=== PATIENT | female | born 1970 | race Caucasian/White ===

== ENCOUNTER 2020-01-05 11:20 | Inpatient (IN) | payer MEDICAID, SELFPAY ==
[2020-01-05 11:32] VITALS: BP 127/93; PULSE 89; RESP 18; TEMP 36.6; O2SAT 93; BMI 27.4
--- NOTE | 2020-01-05 11:45 | W.ED.PSYCH ---
HPI - Psych General: Chief Complaint: Psychiatric Symptoms Stated Complaint: direct admit npu Time Seen by Provider: 01/05/20 11:38 Source: patient and police Mode of arrival: other Limitations: no limitations History of Present Illness: HPI Narrative: 49-year-old female who is here from [place] with a 96-hour hold for suicide attempt days ago. Patient currently denies being suicidal and has no complaints at this time. Patient is direct admit to the MPU but is coming to the ER for code screening. She denies any fever or cough. Associated symptoms: Reports depression Review of Systems Const: Denies: fever(s), chills, body aches or change in appetite Eyes: Denies: blurry vision or eye discomfort ENMT: Denies: throat pain or dental pain Card: Denies: chest pain Resp: Denies: dyspnea GI: Denies: abdominal pain, nausea, vomiting or diarrhea : Denies: dysuria Musc: Denies: neck pain or back pain Skin/Breast: Denies: rash Neuro: Denies: headache(s) Psych: Reports: depression Baldo/Lymph: Denies: easy bruising All/Imm: Denies: urticaria Physical Exam Const: COMMON NORMALS: no acute distress, patient oriented x3 and healthy appearing HENMT: COMMON NORMALS: normocephalic and atraumatic HEAD & SCALP: normocephalic and atraumatic Eye: COMMON NORMALS: Equal, round and reactive pupils present and EOMs intact bilaterally PUPIL: Yes Equal, round and reactive pupils present Neck/C-Spine: COMMON NORMALS: full ROM and supple Chest: COMMONS NORMALS: normal inspection of the chest and normal palpation of entire chest wall Resp: COMMON NORMALS: normal respiratory effort, No retractions, No use of accessory muscles and clear to auscultation bilaterally AUSCULTATION: clear to auscultation bilaterally Cardio: COMMON NORMALS: regular rate, regular rhythm and No murmurs present (Cardio) RATE: regular rate RHYTHM: regular rhythm GI: COMMON NORMALS: Normal to inspection, nondistended, normoactive bowel sounds present, Soft to palpation, non-tender and no masses PALPATION: Yes Soft to palpation Extremity: COMMON NORMALS: normal to inspection and full ROM Neuro: COMMON NORMALS: patient oriented x3, moves all extremities and no focal motor deficits Psych: COMMON NORMALS: mental status grossly normal, Normal thought process present and cooperative MOOD & AFFECT: Yes depressed mood THOUGHT PROCESS: Normal thought process present Skin: COMMON NORMALS: no rashes or lesions noted and no wounds GENERAL SKIN EXAM: no rashes or lesions noted MDM - Psych MDM Narrative: Medical decision making narrative: Patient presents here to 96-hour hold as a direct admit to the psychiatric unit. Patient has no complaints and is well-appearing here. She has no cough or fever. Will admit to the psychiatric unit. 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
--- NOTE | 2020-01-05 11:57 | PC.NURSE ---
pt is a direct admit to NPU. She is on a 96 hour hold. pt denies SI or HI at this time
[2020-01-05 12:19] VITALS: BP 127/93; PULSE 89; RESP 18; O2SAT 94
[2020-01-05 12:56] VITALS: BP 111/82; PULSE 101; RESP 20; TEMP 36.6; O2SAT 95
[2020-01-05 12:57] VITALS: BMI 27.4
[2020-01-05 14:00] VITALS: BP 111/82; PULSE 101; RESP 20; TEMP 36.6
[2020-01-05] MEDS: carvedilol 12.5 mg Tablet PO (17:47)
[2020-01-05] MEDS: duloxetine 30 mg Capsule PO (21:12)
[2020-01-05] MEDS: quetiapine 25 mg Tablet 50 MG PO (21:12)
[2020-01-05 22:00] VITALS: BP 123/88; PULSE 88; RESP 17; TEMP 37; O2SAT 93
[2020-01-06 06:00] VITALS: BP 126/79; PULSE 94; RESP 16; TEMP 36.7; O2SAT 94
[2020-01-06] MEDS: carvedilol 12.5 mg Tablet PO (08:33)
[2020-01-06] MEDS: meloxicam 7.5 mg tablet 15 MG PO (08:33)
[2020-01-06] MEDS: lisinopril 5 mg Tablet PO (08:33)
[2020-01-06] MEDS: duloxetine 30 mg Capsule PO (08:33)
--- NOTE | 2020-01-06 08:33 | PM.NHP ---
Providers/Chief Complaint Admitting Physician: Skip Zambrano MD Chief Complaint: direct admit npu HPI NPU History of Present Illness Chief complaint: I apparently attempted suicide on December 27. History of present illness:Christen Ram is a 49 year old female who was transferred from the [facility] on January 03 for direct admission following a suicide attempt on December 27. Patient does not recall the events around the suicide attempt. He said that her level of distress around her family had increased in the week before. She had broken up with her boyfriend of 10 months and that was causing her a great deal of distress. She has a lot of other stressors in her life which she manages poorly. She denies that she had been thinking about suicide in the days before. She feels as though it must have been an impulsive act. Her urine drug screen was positive only for the prescribed benzodiazepines.. Her blood alcohol level was negative. She believes she overdosed on a combination of Seroquel, alprazolam, and zolpidem. She does not recall taking the pills. The first thing she recalls is waking up in the intensive care unit at the hospital. On hospital day #3 the transferred to her to a regular medical bed and she remained there for several days. Today she reports that she is extremely remorseful over her alleged activities. She is looking forward to getting back to seeing her psychiatrist at the [facility]. She also acknowledges that meeting with a psychiatrist 4 times a year is not considered therapy and she needs to be seeing a therapist. Mental health history: Patient was first treated for mental health problems at age 31 following hospitalization for her first suicide attempt by overdose. This is her third hospitalization for overdose. She is actively in treatment with Dr. Pratt at the [facility]. Who is providing pharmacological intervention. She is not seeing a therapist at this time. Family psychiatric history is positive for mother being treated for depression. Social history: Patient grew up in [place]. She dropped out of school at age 18. She achieved her GED at age 22 and got an associates degree in applied science at age 32. She has been once. She was in 1999. She has 2 adult children. 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 Legal history: Patient denies any history of arrests or incarceration. Public record in [place] supports that assertion. Past medical history: Allergies: Morphine Patient is being treated for low back pain, fibromyalgia, hypertension, lumbar root nerve disorder, neck pain, urinary incontinence. Surgeries include a tubal ligation, labrum tear repair, and bladder suspension. Medications prior to hospitalization include duloxetine 60 mg daily, carvedilol 12.5 mg twice daily, Lexapro 20 mg daily, lisinopril 5 mg daily, quetiapine 50 mg at bedtime, zolpidem 10 mg at bedtime. She also takes meloxicam 15 mg and alprazolam 0.5 mg on a as needed basis. Meds NPU Home Medications Medication Instructions Recorded Confirmed Last Taken Type alprazolam 0.5 mg PO BID PRN 01/05/20 01/05/20 Unknown History carvedilol 12.5 mg PO BID 01/05/20 01/05/20 01/05/20 History duloxetine 30 mg PO BID 01/05/20 01/05/20 01/05/20 History escitalopram oxalate 20 mg PO DAILY 01/05/20 01/05/20 01/05/20 History ibuprofen 200 - 800 mg PO PRN 01/05/20 01/05/20 01/04/20 History lisinopril 5 mg PO DAILY 01/05/20 01/05/20 Unknown History meloxicam 15 mg PO DAILY 01/05/20 01/05/20 Unknown History quetiapine 50 mg PO BEDTIME 01/05/20 01/05/20 01/04/20 History zolpidem 10 mg PO BEDTIME 01/05/20 01/05/20 Unknown History Allergies Allergy/AdvReac Type Severity Reaction Status Date / Time morphine Allergy ADR-Abdominal Verified 01/05/20 12:42 Pain Mental Status Exam MSE Comments: Discharge Mental Status Exam: Appearance: hygiene is good; no gross neurological deficits., gait is unremarkable; AIMS=0 Speech: Speech is of normal rate and rhythm and easily understood. Thought processes: Thought processes are abstract. Judgment is adequate for safety. Associations: intact Psychotic processes: There is no indication of guarding or paranoia. There is no attention to the internal stimuli. Auditory and visual hallucinations are denied. Judgment: Insight is fair. Problem solving skills are adequate for safety. Orientation: The patient is oriented to person, place time and situation. Memory: no deficits noted in immediate, intermediate, or remote spheres. Attention: The patient is alert and interpersonally engaged. Language: Verbalizations are coherent. Fund of knowledge: Fund of knowledge is adequate. Affect/Mood: Affect is consistent with a euthymic mood. denied suicidal ideation Affective range is appropriate. Psychosis: perception unimpaired except through cognitive distortion; reality testing intact. Vitals/I&O/Wt Last Vital Signs Temp 98.1 F 01/06/20 06:00 Pulse 94 01/06/20 06:00 Resp 16 01/06/20 06:00 BP 126/79 01/06/20 06:00 Pulse Ox 94 01/06/20 06:00 Weight last 48 hrs Weight 77.111 kg Weight 77.111 kg A&P Assessment and plan (1) Adjustment disorder with mixed disturbance of emotions and conduct: Status: Acute Additional A&P Information Diagnoses: Adjustment disorder with disturbance of mood and conduct Assessment: Patient has a pattern of poor coping skills and would benefit from engagement in individual psychotherapy in addition to medication management. Her medications seem to be accomplishing what is expected of them. She does not present an imminent risk to self or others at this time and is intent on returning home and engaging in that psychotherapy. Treatment plan: Patient is discharged to home. No changes in medications. Involuntary Hold Information 96 Hour Hold: 96 Hour Involuntary Admission: Yes 96 Hour Hold Ending Date: 01/05/20 96 Hour Hold Ending Time: 12:57 Attestations NPU Medical Necessity Statement*: Patient is subsequently discharged to home. Coding Level of Care Code Acute Build And Release Manager for [place] [place] Diagnoses Adjustment disorder with mixed disturbance of emotions and conduct F43.25
--- NOTE | 2020-01-06 09:20 | PM.NDC ---
Diagnoses at Discharge Discharge Diagnosis (1) Adjustment disorder with mixed disturbance of emotions and conduct: Status: Resolved Reason for Visit Reason for Visit: dChief complaint: I apparently attempted suicide Hospital Course Discharge Summary Chief complaint: I apparently attempted suicide on December 27. History of present illness:Christen Ram is a 49 year old female who was transferred from the [facility] on January 03 for direct admission following a suicide attempt on December 27. Patient does not recall the events around the suicide attempt. He said that her level of distress around her family had increased in the week before. She had broken up with her boyfriend of 10 months and that was causing her a great deal of distress. She has a lot of other stressors in her life which she manages poorly. She denies that she had been thinking about suicide in the days before. She feels as though it must have been an impulsive act. Her urine drug screen was positive only for the prescribed benzodiazepines.. Her blood alcohol level was negative. She believes she overdosed on a combination of Seroquel, alprazolam, and zolpidem. She does not recall taking the pills. The first thing she recalls is waking up in the intensive care unit at the hospital. On hospital day #3 the transferred to her to a regular medical bed and she remained there for several days. Today she reports that she is extremely remorseful over her alleged activities. She is looking forward to getting back to seeing her psychiatrist at the [facility]. She also acknowledges that meeting with a psychiatrist 4 times a year is not considered therapy and she needs to be seeing a therapist. Mental health history: Patient was first treated for mental health problems at age 31 following hospitalization for her first suicide attempt by overdose. This is her third hospitalization for overdose. She is actively in treatment with Dr. Pratt at the [facility]. Who is providing pharmacological intervention. She is not seeing a therapist at this time. Family psychiatric history is positive for mother being treated for depression. Social history: Patient grew up in [place] [facility]. She dropped out of school at age 18. She achieved her GED at age 22 and got an associates degree in applied science at age 32. She has been once. She was in 1999. She has 2 adult children. 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 Legal history: Patient denies any history of arrests or incarceration. Public record in [place] supports that assertion. Past medical history: Allergies: Morphine Patient is being treated for low back pain, fibromyalgia, hypertension, lumbar root nerve disorder, neck pain, urinary incontinence. Surgeries include a tubal ligation, labrum tear repair, and bladder suspension. Medications prior to hospitalization include duloxetine 60 mg daily, carvedilol 12.5 mg twice daily, Lexapro 20 mg daily, lisinopril 5 mg daily, quetiapine 50 mg at bedtime, zolpidem 10 mg at bedtime. She also takes meloxicam 15 mg and alprazolam 0.5 mg on a as needed basis. Involuntary Hold Information 96 Hour Hold: 96 Hour Involuntary Admission: Yes 96 Hour Hold Ending Date: 01/05/20 96 Hour Hold Ending Time: 12:57 Mental Status Exam MSE Comments: Discharge Mental Status Exam: Appearance: hygiene is good; no gross neurological deficits., gait is unremarkable; AIMS=0 Speech: Speech is of normal rate and rhythm and easily understood. Thought processes: Thought processes are abstract. Judgment is adequate for safety. Associations: intact Psychotic processes: There is no indication of guarding or paranoia. There is no attention to the internal stimuli. Auditory and visual hallucinations are denied. Judgment: Insight is fair. Problem solving skills are adequate for safety. Orientation: The patient is oriented to person, place time and situation. Memory: no deficits noted in immediate, intermediate, or remote spheres. Attention: The patient is alert and interpersonally engaged. Language: Verbalizations are coherent. Fund of knowledge: Fund of knowledge is adequate. Affect/Mood: Affect is consistent with a euthymic mood. denied suicidal ideation Affective range is appropriate. Psychosis: perception unimpaired except through cognitive distortion; reality testing intact. Discharge Data Vitals: Last Vital Signs Temp 98.1 F 01/06/20 06:00 Pulse 94 01/06/20 06:00 Resp 16 01/06/20 06:00 BP 126/79 01/06/20 06:00 Pulse Ox 94 01/06/20 06:00 Discharge Plan Discharge Patient Disposition: Home, Self-Care Condition: Stable Prescriptions: Continued carvedilol 12.5 mg tablet 12.5 mg PO BID RF: 0 meloxicam 15 mg tablet 15 mg PO DAILY RF: 0 alprazolam 0.5 mg tablet 0.5 mg PO BID PRN (Reason: unknown) RF: 0 ibuprofen 200 mg Tablet 200 - 800 mg PO PRN RF: 0 lisinopril 5 mg tablet 5 mg PO DAILY RF: 0 zolpidem 10 mg tablet 10 mg PO BEDTIME RF: 0 escitalopram oxalate 20 mg tablet 20 mg PO DAILY RF: 0 duloxetine 30 mg capsule,delayed release(DR/EC) 30 mg PO BID RF: 0 quetiapine 50 mg tablet 50 mg PO BEDTIME RF: 0 Discharge Orders: Discharge Order (Routine); Ordered 01/06/20 Ordered By: Skip Zamrbano Referrals: [facility] [Other] (Please call to scheduled a follow up appointment with your medication provider. A referral for therapy is recommended.) Discharge Attestations NPU Time Spent in Discharge Care*: less than 30 min Coding Level of Care Code Acute Product Manufacturing Professional for [facility] Diagnoses Adjustment disorder with mixed disturbance of emotions and conduct F43.25
[2020-01-06 10:18] VITALS: BP 126/79; PULSE 94; RESP 16; TEMP 36.7; O2SAT 94
== END 2020-01-06 13:00 | disposition home or self-care (01) | DRG 882 ==
LOC: ER 12:00 → NP 12:12
PROVIDERS: Admitting Provider Psychiatry & Neurology Psychiatry; Visit Provider Psychiatry & Neurology Psychiatry
DX: F43.25 Adjustment disorder with mixed disturbance of emotions and conduct (principal); R45.851 Suicidal ideations; Z91.5 Personal history of self-harm; I10 Essential (primary) hypertension; M79.7 Fibromyalgia
CPT/HCPCS: 12345; 99284

== ENCOUNTER 2020-01-05 11:20 | Emergency (ER) | payer MEDICAID, SELFPAY | END 2020-01-05 12:56 | disposition admitted as inpatient to this hospital (09) | LOC: ER 01-07 02:41 | PROVIDERS: Emergency Provider Emergency Medicine | DX: R45.851 Suicidal ideations (principal); F32.9 Major depressive disorder, single episode, unspecified | CPT/HCPCS: 99284; 99285 ==